=== PATIENT | male | born 1980 | race Caucasian/White ===

== ENCOUNTER 2016-12-31 11:47 | Emergency (ER) | payer SELFPAY ==
[~2016-12-31] VITALS: Ht 175.3 cm; Wt 80.0 kg
[2016-12-31 11:53] VITALS: BP 155/92; PULSE 88; RESP 20; TEMP 97.6; O2SAT 94
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
[2016-12-31] MEDS ORDERED: IBUP-232 PO (12:51)
== END 2016-12-31 13:04 | disposition home or self-care (01) ==
LOC: NEPB 11:47
DX: S00.11XA Contusion of right eyelid and periocular area, initial encounter (principal); F17.210 Nicotine dependence, cigarettes, uncomplicated; F14.90 Cocaine use, unspecified, uncomplicated; F15.10 Other stimulant abuse, uncomplicated; F11.20 Opioid dependence, uncomplicated; Y04.2XXA Assault by strike against or bumped into by another person, initial encounter; Y93.9 Activity, unspecified; Y92.9 Unspecified place or not applicable; Y99.9 Unspecified external cause status
CPT/HCPCS: 99283

== ENCOUNTER 2017-07-13 14:45 | Emergency (ER) | payer SELFPAY ==
[~2017-07-13] VITALS: Ht 172.7 cm; Wt 68.0 kg
[~2017-07-13 14:45] MED LIST: IBUP-232 PO
[2017-07-13 14:54] VITALS: BP 103/58; PULSE 138; RESP 20; TEMP 103.2; O2SAT 97
[2017-07-13] MEDS ORDERED: SODIUM CHLOR 0.9% 1000 ML INJ 1,000 ML IV ONE ×2 (15:01→16:15)
--- NOTE | 2017-07-13 15:01 | PD ---
HPI Chief Complaint: OD/ Ingestion Time Seen by Provider: 14:59 Travel History International Travel<30 days: No Contact w/Intl Traveler<30days: No History of Present Illness HPI 37 YO M presents to the ED via EMS for evaluation after accidental overdose. The patient endorses injecting "1 bag" of heroin just before arrival. He denies SI, states that he was attempting to get high. He states that he was in his normal state of health before today. He denies other illicit drug or alcohol use. PFSH Past Medical History Diminished Hearing: No Immunizations Current: No Past Surgical History Other Surgery: Yes (RIGHT FOREARM SKIN INFECTION-WOUND DEBRIDEMENT) Social History Alcohol Use: Yes (SOCIALLY) Tobacco Use: Yes (3/4 PPD) Substance Use: Yes (MARIJUANA, HEROINE) Allergies-Medications (Allergen,Severity, Reaction): Coded Allergies: No Known Allergies (Unverified , 07/13/17) Reported Meds & Prescriptions Reported Meds & Active Scripts Active No Active Prescriptions or Reported Medications Review of Systems Except as stated in HPI: all other systems reviewed are Neg Physical Exam Narrative GENERAL: Well-nourished, well-developed white male. Somewhat somnolent but arouses easily to voice. SKIN: Focused skin assessment warm/dry. Multiple tattoos. Multiple injection sites in various stages of healing. No signs of active infection. HEAD: Normocephalic. EYES: No scleral icterus. No injection or drainage. Pupils 2-3 mm and reactive bilaterally. NECK: Supple, trachea midline. No JVD or lymphadenopathy. CARDIOVASCULAR: Regular rate and rhythm without murmurs, gallops, or rubs. RESPIRATORY: Breath sounds clear and equal bilaterally. No accessory muscle use. GASTROINTESTINAL: Abdomen soft, non-tender, nondistended. Hypoactive bowel sounds. MUSCULOSKELETAL: No cyanosis, or edema. NEUROLOGICAL: Awake and alert. Cranial nerves II through XII intact. Motor and sensory grossly within normal limits. Five out of 5 muscle strength in all muscle groups. Normal speech. BACK: Nontender without obvious deformity. No CVA tenderness. Data Data Last Documented VS Vital Signs Date Time Temp Pulse Resp B/P (MAP) Pulse Ox O2 Delivery O2 Flow Rate FiO2 07/13/17 18:00 07/13/17 17:15 97.8 96 17 99 Room Air Orders Orders Electrocardiogram (07/13/17 15:01) Complete Blood Count With Diff (07/13/17 15:) Comprehensive Metabolic Panel (07/13/17 15:) Prothrombin Time / Inr (Pt) (07/13/17:) Act Partial Throm Time (Ptt) (07/13/17:) Urinalysis - C+S If Indicated (07/13/17 15:) Chest, Single Ap (07/13/17:) Iv Access Insert/Monitor (07/13/17:) Ecg Monitoring (07/13/17:) Oximetry (07/13/17:) Sodium Chloride 0.9% Flush (Ns Flush) (07/13/17 15:15) Sodium Chlor 0.9% 1000 Ml Inj (Ns 1000 M (07/13/17 15:) Drug Screen, Random Urine (07/13/17:) Alcohol (Ethanol) (07/13/17 15:) ^ Patient Temperature (07/13/17:) Acetaminophen (Tylenol) (07/13/17 15:15) Lactic Acid Sepsis Protocol (07/13/17 15:39) Blood Culture (07/13/17 15:39) Sodium Chlor 0.9% 1000 Ml Inj (Ns 1000 M (07/13/17 16:15) Labs Laboratory Tests Test 07/13/17 15:15 07/13/17 16:20 White Blood Count 11.7 TH/MM3 Red Blood Count 4.92 MIL/MM3 Hemoglobin 14.2 GM/DL Hematocrit 42.4 % Mean Corpuscular Volume 86.1 FL Mean Corpuscular Hemoglobin 28.8 PG Mean Corpuscular Hemoglobin Concent 33.4 % Red Cell Distribution Width 13.7 % Platelet Count 184 TH/MM3 Mean Platelet Volume 7.5 FL Neutrophils (%) (Auto) 83.6 % Lymphocytes (%) (Auto) 10.5 % Monocytes (%) (Auto) 5.1 % Eosinophils (%) (Auto) 0.2 % Basophils (%) (Auto) 0.6 % Neutrophils # (Auto) 9.8 TH/MM3 Lymphocytes # (Auto) 1.2 TH/MM3 Monocytes # (Auto) 0.6 TH/MM3 Eosinophils # (Auto) 0.0 TH/MM3 Basophils # (Auto) 0.1 TH/MM3 CBC Comment DIFF FINAL Differential Comment Prothrombin Time 12.3 SEC Prothromb Time International Ratio 1.1 RATIO Activated Partial Thromboplast Time 27.3 SEC Blood Urea Nitrogen 11 MG/DL Creatinine 1.19 MG/DL Random Glucose 115 MG/DL Total Protein 7.0 GM/DL Albumin 3.5 GM/DL Calcium Level 8.3 MG/DL Alkaline Phosphatase 109 U/L Aspartate Amino Transf (AST/SGOT) 57 U/L Alanine Aminotransferase (ALT/SGPT) 59 U/L Total Bilirubin 0.6 MG/DL Sodium Level 137 MEQ/L Potassium Level 4.2 MEQ/L Chloride Level 103 MEQ/L Carbon Dioxide Level 27.7 MEQ/L Anion Gap 6 MEQ/L Estimat Glomerular Filtration Rate 70 ML/MIN Ethyl Alcohol Level LESS THAN 3 MG/DL Lactic Acid Level 1.0 mmol/L MDM Medical Decision Making Medical Screen Exam Complete: Yes Emergency Medical Condition: Yes Differential Diagnosis accidental overdose versus opioid abuse versus endocarditis versus other Narrative Course 37 YO M presents to the ED via EMS for evaluation after accidental overdose. The patient endorses injecting "1 bag" of heroin just before arrival. He denies SI, states that he was attempting to get high. He states that he was in his normal state of health before today. He denies other illicit drug or alcohol use. EMS reports that the patient was somnolent but roused easily to voice, therefore no Narcan was administered en route. Patient was temp was 103.2, pulse 138, BP 103/58, O2 saturation 97% on room air on arrival. I am reveals somewhat somnolent white male in no acute distress. Pupils 2-3 mm bilaterally. He answers questions, following commands and reveals no focal neuro deficits. No appreciable M/R/chief. Multiple injection sites without signs of infection. Abdomen soft and nontender. Patient was administered 2 L normal saline IV, 650 Tylenol by mouth. EKG: Rate 119, sinus tachycardia. HI interval 88, QRS 100, QTc 373 ms. Normal axis. No acute ST changes. Reviewed by Dr. Smith. CXR: No acute disease. CBC: WBC 9.7. Hemoglobin 14.2. INR 1.1. Lactic acid 1.0. CMP: BUN 11, creatinine 1.19. Calcium 8.3. EtOH less than 3. On recheck temperature improved to 97.8, heart rate 96, BP 106/58. The patient is alert and awake, texting on his phone. I discussed the possibility of endocarditis and recommended admission to the hospital for evaluation. The patient declined admission. I explained the risks of leaving, up to and including . The patient indicated understanding of the instructions but still chose to leave AGAINST MEDICAL ADVICE. Diagnosis Primary Impression: Accidental overdose of heroin Qualified Codes: T40.1X1A - Poisoning by heroin, accidental (unintentional), initial encounter Referrals: [facility] (Out patient) Patient Instructions: General Instructions, Opioid Overdose (ED) Additional Instructions: Seek outpatient treatment for your substance abuse problem at [facility]. Return to the ED for any urgent or emergent medical condition. Scripts No Active Prescriptions or Reported Meds Disposition: 07 AGAINST MEDICAL ADVICE Condition: Stable Lexis Moreno Jul 13, 2017 15:01
[2017-07-13] MEDS ORDERED: SODIUM CHLORIDE 0.9% FLUSH 10 ML FLUSH IVF PRN (15:15)
[2017-07-13] MEDS ORDERED: ACETAMINOPHEN 325 MG TAB PO ONE (15:15)
[2017-07-13 15:19] VITALS: RESP 20; O2SAT 97
--- NOTE | 2017-07-13 15:55 | RADRPT ---
EXAM DATE/TIME: 07/13/2017 15:20 [facility] COMPARISON: CHEST SINGLE AP, September 04, 2016, 18:17. INDICATIONS : Syncopal episode. Possible OD. Shortness of breath. MEDICAL HISTORY : None. SURGICAL HISTORY : None. ENCOUNTER: Initial ACUITY: 1 day PAIN SCORE: 0/10 LOCATION: chest FINDINGS: A single view of the chest demonstrates the lungs to be symmetrically aerated without evidence of mas s, infiltrate or effusion. The cardiomediastinal contours are unremarkable. Osseous structures are intact. CONCLUSION: No acute disease. Daniel Galindo MD on July 13, 2017 at 15:37 Board Certified Radiologist. This report was verified electronically.
[2017-07-13 16:15] VITALS: BP 112/68; PULSE 102; RESP 18; TEMP 99.6; O2SAT 97
[2017-07-13 16:16] LABS: AUTOMATED NEUTROPHIL # 9.8 TH/MM3 (1.8-7.7); BASOPHIL # 0.1 TH/MM3 (0-0.2); BASOPHIL % 0.6 % (0.0-2.0); EOSINOPHIL % 0.2 % (0.0-4.0); HEMATOCRIT 42.4 % (39.0-51.0); HEMO FLAGS DIFF FINAL; LYMPH % 10.5 % (9.0-44.0); LYMPHOCYTE # 1.2 TH/MM3 (1.0-4.8); MEAN CELL VOLUME 86.1 FL (80.0-100.0); MEAN CORPUSCULAR HEMOGLOBIN 28.8 PG (27.0-34.0); MEAN CORPUSCULAR HGB CONC 33.4 % (32.0-36.0); MONO % 5.1 % (0.0-8.0); NEUT % 83.6 % (16.0-70.0); PLATELET COUNT 184 TH/MM3 (150-450); RED BLOOD COUNT 4.92 MIL/MM3 (4.50-5.90); RED CELL DISTRIBUTION WIDTH 13.7 % (11.6-17.2); WHITE BLOOD COUNT 11.7 TH/MM3 (4.0-11.0)
[2017-07-13 16:30] LABS: APTT (PATIENT) 27.3 SEC (24.3-30.1); INTERNATIONAL NORMALIZED RATIO 1.1 RATIO; PROTHROMBIN TIME - PATIENT 12.3 SEC (9.8-11.6)
[2017-07-13 16:39] LABS: ALT (GPT) 59 U/L (12-78); ANION GAP 6 MEQ/L (5-15); AST (GOT) 57 U/L (15-37); BICARBONATE 27.7 MEQ/L (21.0-32.0); BLOOD UREA NITROGEN 11 MG/DL (7-18); CHLORIDE 103 MEQ/L (98-107); GLOMERULAR FILTRATION RATE 70 ML/MIN (>89); POTASSIUM 4.2 MEQ/L (3.5-5.1); SODIUM (NA) 137 MEQ/L (136-145)
[2017-07-13 16:41] LABS: ALCOHOL LESS THAN 3 MG/DL (0-5); ALKALINE PHOSPHATASE 109 U/L (45-117); TOTAL BILIRUBIN ADULT 0.6 MG/DL (0.2-1.0)
[2017-07-13 17:15] VITALS: BP 106/58; PULSE 96; RESP 17; TEMP 97.8; O2SAT 99
--- NOTE | 2017-07-14 20:56 | EKG ---
Date Performed: 07/13/2017 Time Performed: 15:24:22 PTAGE: 37 years EKG: SINUS TACHYCARDIA WITH SHORT WI INTERVAL ABNORMAL RHYTHM ECG INTERPRETATION BASED ON A DEFA ULT AGE OF 42 YEARS NO PREVIOUS TRACING DOCTOR: John Tariq Interpretating Date/Time 07/14/2017 20:54:37
== END 2017-07-13 18:00 | disposition left against medical advice (07) ==
LOC: NEPC 14:45
DX: T40.1X1A Poisoning by heroin, accidental (unintentional), initial encounter (principal); R00.0 Tachycardia, unspecified; R55 Syncope and collapse; F17.200 Nicotine dependence, unspecified, uncomplicated
CPT/HCPCS: 71010; 80053; 80307; 83605; 85025; 85610; 85730; 87040; 93005; 96360; 96361; 99285; J7030